=== PATIENT | female | born 1960 | race Asian ===

== ENCOUNTER 2019-04-28 08:18 | Day surgery (SDC) | payer OTHER ==
[2019-04-28] VITALS (18 sets, daily range): BP systolic 111–142; BP diastolic 59–83; PULSE 60–72; RESP 13–23; Ht 147.3 cm; Wt 47.7 kg
[~2019-04-28] VITALS: Ht 147.3 cm; Wt 47.7 kg
[~2019-04-28 08:18] MED LIST: ALEN70TA5 PO; ASPI-903 PO; ATOR10TA65 PO; LOSA25TA12 PO; METF100010 PO
[2019-04-28] MEDS ORDERED: CEFAZOLIN 2 GM/50 ML (PMX) 50 ML IVPB SCH (08:30)
[2019-04-28] MEDS ORDERED: BUPIVACAINE 0.25% (MPF) 30 ML INJ ONE (09:27)
[2019-04-28] MEDS ORDERED: LIDOCAINE 1% (MPF) 30 ML INJ ONE (09:28)
--- NOTE | 2019-04-28 09:45 | HPN ---
Date/Time of Note Date/Time of Note DATE: 04/28/19 TIME: 09:45 Interval H&P Admission Note Pt. seen H&P reviewed: No system changes ALFREDO ROCKWELL MD Apr 28, 2019 09:45
--- NOTE | 2019-04-28 09:58 | PREAC ---
Date/Time of Note Date/Time of Note DATE: 04/28/19 TIME: 09:57 Anesthesia Eval and Record Evaluation Time Pre-Procedure Interview DATE: 04/28/19 TIME: 09:57 Age 58 Sex female NPO: 8 hrs Preoperative diagnosis LEFT WRIST MASS, LEFT FOREARM MASSES Planned procedure EXCISION OF LEFT WRIST MASS, LEFT FOREARM MASSES Past Medical History Past Medical History: Includes Endo: Diabetes Surgery & Anesthesia Issues No known issue Meds Anticoagulation: No Beta Hernandez within 24 hr: No Reason Beta Hernandez not given: Pt. not on B-Hernandez Reported Medications Aspirin* (Aspirin* Chew) 81 Mg Tab.chew, 81 MG PO DAILY, TAB.CHEW 04/28/19 Alendronate Sodium* (Fosamax*) 70 Mg Tablet, 70 MG PO Q7D, #4 TAB 04/28/19 Metformin Hcl* (Metformin Hcl*) 1,000 Mg Tablet, 1000 MG PO BID, #30 TAB 04/28/19 Atorvastatin Calcium (Atorvastatin Calcium) 10 Mg Tablet, 10 MG PO QHS, #30 TAB 04/28/19 Losartan Potassium* (Losartan Potassium*) 25 Mg Tablet, 25 MG PO DAILY 04/28/19 Current Medications Sodium Chloride 1,000 ml @ 30 mls/hr Q24H IV ; Start 04/28/19 at 10:00 Meds reviewed: Yes Allergies Coded Allergies: No Known Allergy (Unverified , 04/28/19) Allergies Reviewed: Yes Labs/Studies Labs Reviewed: Reviewed by anesthesiologist test: N/A Studies: ECG (NL), CXR (NAPD) Pre-procedure Exam Last vitals Vital Signs Date Temp Pulse Resp B/P (MAP) Pulse Ox O2 O2 Flow FiO2 Time Delivery Rate 04/28/19 97.1 62 16 125/67 100 Room Air 09:23 (86) Airway: Adequate mouth opening, Adequate thyromental dist Mallampati: Mallampati II Teeth: Normal Lung: Normal Heart: Normal ASA Physical Status ASA physical status: 2 Emergency: None Planned Anesthetic General/MAC: ETT Planned Pain Management Parenteral pain med Pre-operative Attestations Prior to commencing anesthesia and surgery, the patient was re-evaluated, there was verification of: *The patient's identity *The results of appropriate recent lab work and preoperative vital signs *The above evaluation not changing prior to induction *Anesthetic plan, risk benefits, alternative and complications discussed with patient/family; questions answered; patient/family understands, accepts and wishes to proceed. Natanael Landon M.D. Apr 28, 2019 09:58
[2019-04-28] MEDS ORDERED: MEPERIDINE 25 MG INJ IV PRN (10:00)
[2019-04-28] MEDS ORDERED: ALBUTEROL 0.083% (NEB) 2.5 MG/3 ML AMP HHN PRN (10:00)
[2019-04-28] MEDS ORDERED: EPHEDrine 25 MG/5 ML SYG IV PRN (10:00)
[2019-04-28] MEDS ORDERED: SOD CHLORIDE 0.9% 1,000 ML IV SCH (10:00)
[2019-04-28] MEDS ORDERED: MIDAZOLAM 1 MG/ML 2 ML INJ IV PRN (10:00)
[2019-04-28] MEDS ORDERED: LABETALOL HCL 20MG INJ IV PRN (10:00)
[2019-04-28] MEDS ORDERED: TRIMETHOBENZAMIDE 100 MG/ML VIAL IM PRN (10:00)
[2019-04-28] MEDS ORDERED: ONDANSETRON 4 MG INJ IV PRN (10:00)
[2019-04-28] MEDS ORDERED: HYDROmorphONE 1 MG/5 ML IV SYRINGE IV PRN ×3 (10:00)
[2019-04-28] MEDS ORDERED: LACTATED RINGER'S 1,000 ML IV SCH (10:00)
[2019-04-28] MEDS ORDERED: hydrALAzine 20 MG INJ IV PRN (10:00)
[2019-04-28] MEDS ORDERED: FENTAnyl 50 MCG/ML VIAL IV PRN ×3 (10:00)
[2019-04-28] MEDS ORDERED: IPRATROPIUM (NEB) 0.5 MG/2.5 ML AMP HHN PRN (10:00)
[2019-04-28] MEDS ORDERED: DIPHENHYDRAMINE 50 MG INJ IV PRN (10:00)
[2019-04-28] MEDS ORDERED: OXYCODONE/ACETAMINOPHEN (5/325) TAB PO PRN ×2 (10:00)
[2019-04-28] MEDS ORDERED: CEFAZOLIN 1 GM INJ ONE (10:01)
[2019-04-28] MEDS ORDERED: GLYCOPYRROLATE 0.4 MG INJ ONE (10:01)
[2019-04-28] MEDS ORDERED: ROCURONIUM 50 MG INJ ONE (10:01)
[2019-04-28] MEDS ORDERED: NEOSTIGMINE 3 MG/3 ML SYRINGE ONE (10:01)
[2019-04-28] MEDS ORDERED: PROPOFOL 20 ML ONE (10:01)
[2019-04-28] MEDS ORDERED: ONDANSETRON 4 MG INJ ONE (10:02)
[2019-04-28] MEDS ORDERED: MIDAZOLAM 1 MG/ML 2 ML INJ ONE (10:02)
[2019-04-28] MEDS ORDERED: FENTAnyl 50 MCG/ML VIAL ONE (10:02)
[2019-04-28] MEDS ORDERED: DEXAMETHASONE 4 MG/ML 5 ML INJ ONE (10:03)
--- NOTE | 2019-04-28 11:01 | SIPON ---
Date/Time of Note Date/Time of Note DATE: 04/28/19 TIME: 10:59 Operative Report Preoperative Diagnosis 1. Left wrist mass, 2. left forearm mass, x2 Postoperative Diagnosis 1. Left wrist mass, 2. left forearm mass, x2 Operation/Procedure Performed 1. Left wrist mass excision, 2. Left wrist capsulotomy, 3. 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
--- NOTE | 2019-04-28 11:05 | PAC ---
Date/Time of Note Date/Time of Note DATE: 04/28/19 TIME: 11:05 Post-Anesthesia Notes Post-Anesthesia Note Last documented vital signs Vital Signs Date Temp Pulse Resp B/P (MAP) Pulse Ox O2 O2 Flow FiO2 Time Delivery Rate 04/28/19 97.1 62 16 125/67 100 Room Air 09:23 (86) Activity: WNL Respiratory function: WNL Cardiovascular function: WNL Mental status: Baseline Pain reasonably controlled: Yes Hydration appropriate: Yes Nausea/Vomiting absent: Yes Natanael Landon M.D. Apr 28, 2019 11:05
--- NOTE | 2019-04-28 11:10 | OPR ---
Date/Time of Note Date/Time of Note DATE: 04/28/19 TIME: 11:01 Operative Report Procedure Date: Apr 28, 2019 Preoperative Diagnosis 1. Left wrist mass, 2. Left forearm masses, x2 Postoperative Diagnosis 1. Left wrist mass, 2. Left forearm masses, x2 Operation/Procedure Performed 1. Left wrist mass excision, 2. Left wrist capsulotomy, 3. 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 Tourniquet Time: 14 minutes Estimated Blood Loss: minimal Transfusion none Specimen Wrist and forearm mass Grafts/Implants none Tubes/Drains None Complications none Pt Condition Post Procedure: stable Disposition: PACU Indications The patient is a 58-year-old female with a left dorsal wrist mass that has been growing in size for a long time. She also has 2 separate masses over the dorsal aspect of her forearm. She wanted to proceed with surgery to remove both the wrist and forearm masses. She has had an ultrasound in the office demonstrating a multilobulated ganglion cyst in the dorsal wrist. 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 She understands risks of surgery which include but are not limited to those infection, pain, bleeding, neurovascular injury, recurrence, decreased range of motion, stiffness, more surgery, and other ane sthesia related risks. She elects to proceed Procedure Description Patient was identified in preoperative holding area. Upper extremity was marked. She is brought back to operating room. She is placed supine and general endotracheal anesthesia was induced. 2 g of IV Ancef was administered. A nonsterile tourniquet was applied to the arm. Arm was prepped and draped in usual sterile fashion. Timeout was performed indicating correct patient site and procedure. Arm was exsanguinated with Esmarch and tourniquet was elevated to 250 minutes mercury. I first began with a dorsal wrist mass excision. A transverse incision was marked out over the mass. Skin was incised sharply. Skin flaps are elevated and the tendons were retracted. The second compartment tendons were retracted radially and the fourth compartment tendons were retracted ulnarly. I encountered a large mass consistent with a cyst. It did have a hemorrhagic component to it. It had a broad base and extended radially under the second compartment. Dorsal intercalated ligament was released and mass was traced down to its stalk coming from the scapholunate interval. It was transected at the base using bipolar cautery. The capsule was also incised and a capsulotomy was made. The scapholunate ligament was preserved. The mass was completely transected and sent to pathology for permanent analysis. It measured approximately 2 x 2 cm. Next attention was turned to the forearm. A longitudinal incision was marked out over the first mass. Skin was incised sharply. There is a fatty tumor measuring 1 x 1 cm that was shelled out. A second longitudinal incision was established just distal to that and similarly skin flaps are elevated and the fatty tumor was easily removed. Tourniquet was then released. The specimens were all sent to pathology for permanent analysis. Hemostasis was used by bipolar cautery. The wrist incision was closed with buried suture using 4-0 Monocryl followed by running subcuticular 4-0 Monocryl suture. The forearm incisions were also closed with a buried subcutaneous suture using 4-0 Monocryl followed by running subcuticular stitch. Local injection 0.25% Marcaine injected into the wrist performed. Steri-Strips were applied. She is then placed into a well-padded volar splint. There is brisk capillary refill in all sponge and instrument notes are correct in the case. She was awoken from anesthesia and taken back stable condition. Plan she will be immobilized in a splint for 2 weeks followed by brace for 2 weeks. ALFREDO ROCKWELL MD Apr 28, 2019 11:10
== END 2019-04-28 15:50 | disposition home or self-care (01) ==
LOC: SDS 08:18
PROVIDERS: ATTEND Orthopaedic Surgery
DX: M67.432 Ganglion, left wrist (principal); E11.9 Type 2 diabetes mellitus without complications; Z79.82 Long term (current) use of aspirin; Z79.84 Long term (current) use of oral hypoglycemic drugs; D17.22 Benign lipomatous neoplasm of skin and subcutaneous tissue of left arm
CPT/HCPCS: 25075; 25111; 82962; J0690; J1100; J1170; J2250; J2405; J2710; J3010; Z7512; Z7610; 88307